=== PATIENT | female | born 1990 | race Two or more races ===

== ENCOUNTER 2017-11-02 02:08 | Emergency (ER) | payer SELFPAY ==
[~2017-11-02] VITALS: Ht 157.5 cm; Wt 65.4 kg
[2017-11-02] MEDS ORDERED: HYDROcodone/acetaminophen 10/325mg tab PO ONE ×2 (02:35→04:10)
[2017-11-02 02:54] LABS: BASOPHILS % (AUTO) 0.3 % (0-1); EOSINOPHILS # (AUTO) 0.3 X10'3 (0-0.9); EOSINOPHILS % (AUTO) 3.1 % (0-6); HEMATOCRIT 42.5 % (35.0-45.0); HEMOGLOBIN 14.5 g/dl (12.0-16.0); LYMPHOCYTES # (AUTO) 1.6 X10'3 (1.1-4.8); LYMPHOCYTES % (AUTO) 19.4 % (21-51); MEAN CORPUSCULAR HEMOGLOBIN 29.1 PG (27.0-31.0); MEAN CORPUSCULAR HGB CONC 34.1 % (33.0-36.5); MEAN CORPUSCULAR VOLUME 85.3 FL (78-98); MEAN PLATELET VOLUME 8.2 FL (7.4-10.4); MONOCYTES # (AUTO) 0.6 X10'3 (0-0.9); NEUTROPHILS # (AUTO) 5.7 X10'3 (1.8-7.7); NEUTROPHILS % (AUTO) 70.2 % (42-75); PLATELET COUNT 249 X10'3 (140-440); RED BLOOD COUNT 4.98 X10'6 (4.20-5.60); RED CELL DISTRIBUTION WIDTH 14.2 % (11.5-14.5); WHITE BLOOD COUNT 8.2 X10'3 (4.5-11.0)
[2017-11-02 03:09] LABS: ALANINE AMINOTRANSFERASE 298 U/L (12-78); ALBUMIN 3.9 G/DL (3.4-5.0); ALKALINE PHOSPHATASE 170 IU/L (46-116); ANION GAP 8 (8-16); ASPARTATE AMINO TRANSFERASE 296 U/L (10-37); BILIRUBIN,TOTAL 0.9 MG/DL (0.1-1.0); BLOOD UREA NITROGEN 15 MG/DL (7-18); BUN/CREATININE RATIO 22.4 (6.6-38.0); CHLORIDE 106 MMOL/L (99-107); CREATININE 0.67 MG/DL (0.40-0.90); GLUCOSE 127 MG/DL (70-104); LIPASE 156 U/L (73-393); SODIUM 140 MMOL/L (135-145); TOTAL CARBON DIOXIDE 26.4 MMOL/L (24-32); TOTAL PROTEIN 7.9 G/DL (6.4-8.2); eGFR > 90 ML/MIN
[2017-11-02 03:11] LABS: CLARITY,URINE CLEAR (Clear); COLOR,URINE YELLOW (Yellow); GLUCOSE, URINE NEGATIVE (Neg); KETONES,URINE NEGATIVE (Neg); LEUKOCYTE ESTERASE ,URINE TRACE (Neg); NITRITES, URINE NEGATIVE (Neg); OCCULT BLOOD,URINE NEGATIVE (Neg); PH,URINE 6.5 (4.8-8.0); PROTEIN,URINE NEGATIVE (Neg)
[2017-11-02 03:15] LABS: UA COLLECTION TYPE CLN CATCH MIDSTREAM
[2017-11-02 03:23] LABS: BACTERIA,URINE 1+ /HPF (Neg); MUCUS STRANDS NONE SEEN /LPF (Neg); RBC,URINE NONE SEEN /HPF (0-2); SQUAMOUS EPITHELIAL CELL,UR FEW /LPF (FEW)
[2017-11-02] MEDS ORDERED: HYDR-565 PO (04:09)
[2017-11-02] MEDS ORDERED: ONDA4TAB6 PO (04:09)
[2017-11-02 04:37] VITALS: BP 117/71
== END 2017-11-02 04:40 | disposition home or self-care (01) ==
LOC: ER 02:09
DX: R74.0 Nonspecific elevation of levels of transaminase and lactic acid dehydrogenase [LDH] (principal); R10.9 Unspecified abdominal pain
CPT/HCPCS: 36415; 76700; 80053; 81001; 83690; 85025; 87088; 99285

== ENCOUNTER 2020-07-25 11:50 | Emergency (ER) | payer OTHER ==
[~2020-07-25 11:50] MED LIST: ONDA4TAB6 PO
== END 2020-07-25 13:41 | disposition left against medical advice (07) ==
LOC: ER 11:51
DX: R10.84 Generalized abdominal pain (principal); Z53.21 Procedure and treatment not carried out due to patient leaving prior to being seen by health care provider

== ENCOUNTER 2020-08-03 15:23 | Emergency (ER) | payer BC, OTHER ==
[~2020-08-03] VITALS: Ht 157.5 cm; Wt 63.6 kg
[2020-08-03 15:48] VITALS: BP 103/68
[2020-08-03 16:43] LABS: BASOPHILS % (AUTO) 0.3 % (0-1); EOSINOPHILS % (AUTO) 0.5 % (0-6); HEMATOCRIT 42.6 % (35.0-45.0); HEMOGLOBIN 14.3 g/dl (12.0-16.0); LYMPHOCYTES # (AUTO) 0.5 X10'3 (1.1-4.8); LYMPHOCYTES % (AUTO) 4.7 % (21-51); MEAN CORPUSCULAR HEMOGLOBIN 29.3 PG (27.0-31.0); MEAN CORPUSCULAR HGB CONC 33.6 g/dL (33.0-36.5); MEAN CORPUSCULAR VOLUME 87.4 FL (78-98); MEAN PLATELET VOLUME 8.2 FL (7.4-10.4); MONOCYTES # (AUTO) 0.5 X10'3 (0-0.9); MONOCYTES % (AUTO) 4.6 % (2-12); NEUTROPHILS # (AUTO) 9.1 X10'3 (1.8-7.7); NEUTROPHILS % (AUTO) 89.9 % (42-75); PLATELET COUNT 292 X10'3 (140-440); RED BLOOD COUNT 4.87 X10'6 (4.20-5.60); WHITE BLOOD COUNT 10.2 X10'3 (4.5-11.0)
[2020-08-03 17:06] LABS: ALANINE AMINOTRANSFERASE 81 U/L (12-78); ALBUMIN 3.4 G/DL (3.4-5.0); ALBUMIN/GLOBULIN RATIO 0.8 (1.1-1.5); ALKALINE PHOSPHATASE 185 IU/L (46-116); ANION GAP 8 (8-16); ASPARTATE AMINO TRANSFERASE 97 U/L (10-37); BILIRUBIN,TOTAL 0.4 MG/DL (0.1-1.0); BLOOD UREA NITROGEN 15 MG/DL (7-18); BUN/CREATININE RATIO 25.9 (6.6-38.0); CHLORIDE 107 MMOL/L (99-107); CREATININE 0.58 MG/DL (0.40-0.90); GLUCOSE 114 MG/DL (70-104); LIPASE 149 U/L (73-393); POTASSIUM 3.8 MMOL/L (3.5-5.1); SODIUM 141 MMOL/L (135-145); TOTAL CARBON DIOXIDE 25.6 MMOL/L (24-32); TOTAL PROTEIN 7.5 G/DL (6.4-8.2); eGFR > 90 ML/MIN
[2020-08-03 19:19] LABS: URINE HCG NEGATIVE (NEG)
[2020-08-03 19:24] LABS: CLARITY,URINE CLEAR (Clear); COLOR,URINE YELLOW (Yellow); GLUCOSE, URINE NEGATIVE (Neg); KETONES,URINE NEGATIVE (Neg); LEUKOCYTE ESTERASE ,URINE NEGATIVE (Neg); NITRITES, URINE NEGATIVE (Neg); OCCULT BLOOD,URINE LARGE (Neg); PROTEIN,URINE NEGATIVE (Neg)
[2020-08-03 19:28] LABS: UA COLLECTION TYPE CLN CATCH MIDSTREAM
[2020-08-03 19:29] LABS: BACTERIA,URINE NONE SEEN /HPF (Neg); SQUAMOUS EPITHELIAL CELL,UR FEW /LPF (FEW); WBC,URINE NONE SEEN /HPF (0-4)
[2020-08-03] MEDS ORDERED: HYDR-3965 PO (19:47)
[2020-08-03] MEDS ORDERED: ONDA4TAB6 PO (19:47)
[2020-08-03] MEDS ORDERED: ondansetron 4mg rapidly disintigrating tab PO ONE (19:50)
== END 2020-08-03 20:30 | disposition home or self-care (01) ==
LOC: ER 15:24
DX: K82.9 Disease of gallbladder, unspecified (principal); Z88.0 Allergy status to penicillin; Z79.899 Other long term (current) drug therapy
CPT/HCPCS: 36415; 80053; 81001; 81025; 83690; 85025; 99283

== ENCOUNTER 2020-08-17 23:58 | Inpatient (IN) | payer BC, OTHER ==
[~2020-08-17] VITALS: Ht 157.5 cm; Wt 61.3 kg
[~2020-08-17 23:58] MED LIST changes: +HYDR-3965 PO
[2020-08-18] VITALS (25 sets, daily range): BP systolic 112–133; BP diastolic 75–88
[2020-08-18] MEDS ORDERED: ondansetron/PF 4mg/2ml inj IV ONE (00:10)
[2020-08-18] MEDS ORDERED: normal saline 1000ML IV soln IVB ONE (00:10)
[2020-08-18 00:28] LABS: BASOPHILS % (AUTO) 0.3 % (0-1); EOSINOPHILS # (AUTO) 0.1 X10'3 (0-0.9); EOSINOPHILS % (AUTO) 1.9 % (0-6); HEMATOCRIT 45.5 % (35.0-45.0); HEMOGLOBIN 15.2 g/dl (12.0-16.0); LYMPHOCYTES # (AUTO) 1.9 X10'3 (1.1-4.8); LYMPHOCYTES % (AUTO) 25.9 % (21-51); MEAN CORPUSCULAR HEMOGLOBIN 29.4 PG (27.0-31.0); MEAN CORPUSCULAR HGB CONC 33.5 g/dL (33.0-36.5); MEAN PLATELET VOLUME 8.5 FL (7.4-10.4); MONOCYTES # (AUTO) 0.3 X10'3 (0-0.9); MONOCYTES % (AUTO) 4.5 % (2-12); NEUTROPHILS # (AUTO) 4.9 X10'3 (1.8-7.7); NEUTROPHILS % (AUTO) 67.4 % (42-75); PLATELET COUNT 238 X10'3 (140-440); RED BLOOD COUNT 5.17 X10'6 (4.20-5.60); RED CELL DISTRIBUTION WIDTH 14.3 % (11.5-14.5); WHITE BLOOD COUNT 7.2 X10'3 (4.5-11.0)
[2020-08-18 00:31] LABS: CLARITY,URINE CLEAR (Clear); COLOR,URINE YELLOW (Yellow); GLUCOSE, URINE NEGATIVE (Neg); KETONES,URINE NEGATIVE (Neg); LEUKOCYTE ESTERASE ,URINE TRACE (Neg); NITRITES, URINE NEGATIVE (Neg); OCCULT BLOOD,URINE SMALL (Neg); PH,URINE 7.5 (4.8-8.0); PROTEIN,URINE NEGATIVE (Neg)
[2020-08-18] MEDS: morphine 4 MG/ML inj SYRINge IV PRN ×2 (00:31→03:37)
[2020-08-18 00:35] LABS: URINE HCG NEGATIVE (NEG)
[2020-08-18 00:41] LABS: UA COLLECTION TYPE CLN CATCH MIDSTREAM
[2020-08-18 00:42] LABS: BACTERIA,URINE 1+ /HPF (Neg); RBC,URINE 0-2 /HPF (0-2); SQUAMOUS EPITHELIAL CELL,UR FEW /LPF (FEW); WBC,URINE 0-4 /HPF (0-4)
[2020-08-18 00:44] LABS: ALANINE AMINOTRANSFERASE 55 U/L (12-78); ALBUMIN 3.8 G/DL (3.4-5.0); ALBUMIN/GLOBULIN RATIO 0.9 (1.1-1.5); ALKALINE PHOSPHATASE 121 IU/L (46-116); ANION GAP 5 (8-16); ASPARTATE AMINO TRANSFERASE 69 U/L (10-37); BILIRUBIN,TOTAL 0.3 MG/DL (0.1-1.0); BLOOD UREA NITROGEN 18 MG/DL (7-18); BUN/CREATININE RATIO 27.3 (6.6-38.0); CALCIUM 8.6 MG/DL (8.5-10.1); CHLORIDE 105 MMOL/L (99-107); CREATININE 0.66 MG/DL (0.40-0.90); GLUCOSE 107 MG/DL (70-104); LIPASE 165 U/L (73-393); POTASSIUM 3.8 MMOL/L (3.5-5.1); SODIUM 142 MMOL/L (135-145); TOTAL CARBON DIOXIDE 32.2 MMOL/L (24-32); TOTAL PROTEIN 7.9 G/DL (6.4-8.2); eGFR > 90 ML/MIN
--- NOTE | 2020-08-18 00:45 | NUR ---
pt to ct via wheel chair
--- NOTE | 2020-08-18 01:10 | NUR ---
DR SYKES AT BEDSIDE
[2020-08-18] MEDS ORDERED: NO HOME MEDS (02:05)
[2020-08-18] MEDS ORDERED: acetaminophen 325mg tablet PO PRN (03:15)
[2020-08-18] MEDS ORDERED: ondansetron/PF 4mg/2ml inj IV PRN ×2 (03:15→11:35)
[2020-08-18] MEDS ORDERED: mag hydrox/Alum hydrox/simeth 30ml oral suspension PO PRN (03:15)
[2020-08-18] MEDS ORDERED: magnesium hydroxide 30ml (MOM) UD suspension PO PRN (03:15)
[2020-08-18] MEDS: normal saline 1000ml 1,000 ML IV SCH ×3 (04:09→23:04)
--- NOTE | 2020-08-18 06:26 | NUR ---
ULTRASOUND AT BEDSIDE
--- NOTE | 2020-08-18 08:41 | NUR ---
PT AMBULATED TO BATHROOM WITH MIN ASSIST AND PLACED INTO GOWN. NO DISTRESS NOTED.
[2020-08-18] MEDS ORDERED: BUPIVAcaine/PF 2.5 mg/ml (0.25%) 30ml vial ONE (10:48)
[2020-08-18] MEDS: morphine 2 MG/ML inj. syringe IV PRN ×4 (11:02→23:04)
[2020-08-18] MEDS ORDERED: famotidine/PF 10 mg/ml inj IV ONE (11:20)
[2020-08-18] MEDS ORDERED: fentaNYL/PF 50MCG/1 ML 2ML syringe ONE ×2 (11:23→12:15)
[2020-08-18] MEDS ORDERED: midazolam 2 mg/2 ml injection ONE (11:24)
[2020-08-18] MEDS ORDERED: rocuronium 10mg/ml inj IV ONE (11:25)
[2020-08-18] MEDS ORDERED: propofol inj 20 ML IV ONE (11:25)
[2020-08-18] MEDS ORDERED: LIDOcaine 2% (20mg/ml) 5ml vial ONE (11:25)
[2020-08-18] MEDS ORDERED: proCHLORperazine 10 MG/2 ml inj IV PRN (11:35)
[2020-08-18] MEDS ORDERED: morphine 2 MG/ML inj. syringe IV PRN (11:35)
[2020-08-18] MEDS ORDERED: meperidine/PF 25mg/ml syringe IV PRN ×3 (11:35)
[2020-08-18] MEDS ORDERED: ringers solution, lacted 1,000 ML IV SCH (11:35)
[2020-08-18] MEDS ORDERED: morphine 4 MG/ML inj SYRINge IV PRN (11:35)
[2020-08-18] MEDS ORDERED: sevoflurane 250ml liquid IH ONE (11:45)
[2020-08-18] MEDS ORDERED: clindamycin phosphate 150mg/ml inj. ONE (12:11)
[2020-08-18] MEDS ORDERED: bacitracin 15gm ointment TP ONE (12:44)
--- NOTE | 2020-08-18 12:55 | NUR ---
ADMITTED TO PACU FROM OR ACCOMPANIED BY ANESTHESIA. INTIAL PHYSICAL ASSESSMENT DONE AND RECORDED. REPORT RECEIVED FROM ANESTHESIA.
[2020-08-18] MEDS ORDERED: neostigmine methylsulfate 1 MG/ML 10ml vial ONE (13:08)
[2020-08-18] MEDS ORDERED: ondansetron/PF 4mg/2ml inj ONE (13:08)
[2020-08-18] MEDS ORDERED: glycopyrrolate 0.2mg/ml inj ONE (13:08)
[2020-08-18] MEDS ORDERED: dexamethasone sod phosphate 4mg/ml inj. ONE (13:08)
--- NOTE | 2020-08-18 13:46 | NUR ---
REPORT TO Veronica CUBA RN
--- NOTE | 2020-08-18 15:09 | NUR ---
received report from recovery
--- NOTE | 2020-08-18 15:30 | NUR ---
PACU DISCHARGE CRITERIA MET, REPORT GIVEN TO FLOOR. DENIES PAIN OR DISCOMFORT, TRANSFERRED TO ROOM IN STABLE GOOD CONDITION. COVID PRECAUTIONS FOLLOWED
--- NOTE | 2020-08-18 18:27 | NUR ---
GAVE REPORT TO November,
[2020-08-19 02:00] VITALS: BP 107/57
[2020-08-19] MEDS: morphine 2 MG/ML inj. syringe IV PRN ×4 (03:22→21:12)
[2020-08-19 06:00] VITALS: BP 100/61
--- NOTE | 2020-08-19 06:34 | NUR ---
Patient in room [facility]TH[facility] 4016. I have received report from EMILY HILTON and had the opportunity to ask questions and assume patient care.
[2020-08-19 08:31] LABS: BASOPHILS % (AUTO) 0.3 % (0-1); EOSINOPHILS % (AUTO) 0.5 % (0-6); HEMATOCRIT 40.8 % (35.0-45.0); HEMOGLOBIN 13.6 g/dl (12.0-16.0); LYMPHOCYTES # (AUTO) 1.1 X10'3 (1.1-4.8); LYMPHOCYTES % (AUTO) 14.8 % (21-51); MEAN CORPUSCULAR HEMOGLOBIN 29.5 PG (27.0-31.0); MEAN CORPUSCULAR HGB CONC 33.3 g/dL (33.0-36.5); MEAN CORPUSCULAR VOLUME 88.5 FL (78-98); MEAN PLATELET VOLUME 9.1 FL (7.4-10.4); MONOCYTES # (AUTO) 0.3 X10'3 (0-0.9); MONOCYTES % (AUTO) 4.3 % (2-12); NEUTROPHILS # (AUTO) 6.2 X10'3 (1.8-7.7); NEUTROPHILS % (AUTO) 80.1 % (42-75); PLATELET COUNT 234 X10'3 (140-440); RED BLOOD COUNT 4.61 X10'6 (4.20-5.60); RED CELL DISTRIBUTION WIDTH 14.2 % (11.5-14.5); WHITE BLOOD COUNT 7.7 X10'3 (4.5-11.0)
[2020-08-19 08:51] LABS: ALANINE AMINOTRANSFERASE 95 U/L (12-78); ALBUMIN/GLOBULIN RATIO 0.9 (1.1-1.5); ALKALINE PHOSPHATASE 109 IU/L (46-116); ANION GAP 10 (8-16); ASPARTATE AMINO TRANSFERASE 37 U/L (10-37); BILIRUBIN,TOTAL 0.6 MG/DL (0.1-1.0); BLOOD UREA NITROGEN 9 MG/DL (7-18); BUN/CREATININE RATIO 16.4 (6.6-38.0); CALCIUM 8.5 MG/DL (8.5-10.1); CHLORIDE 107 MMOL/L (99-107); CREATININE 0.55 MG/DL (0.40-0.90); GLUCOSE 92 MG/DL (70-104); POTASSIUM 3.6 MMOL/L (3.5-5.1); SODIUM 142 MMOL/L (135-145); TOTAL CARBON DIOXIDE 24.7 MMOL/L (24-32); TOTAL PROTEIN 6.4 G/DL (6.4-8.2); eGFR > 90 ML/MIN
[2020-08-19] MEDS: normal saline 1000ml 1,000 ML IV SCH ×2 (09:15→19:15)
[2020-08-19 10:00] VITALS: BP 112/70
[2020-08-19] MEDS ORDERED: pneumococcal 23-VAL P-sac vacc 25 mcg/0.5ml vial IMVAC ONE (10:00)
--- NOTE | 2020-08-19 11:23 | NUR ---
Page Sent PAGER ID: [phone] MESSAGE: JONO 0590-RE: GUME VARELA [phone]...CAN I GET A DIET ORDER FOR PT, POST OP BALDO PACHECO 08/18
[2020-08-19] MEDS ORDERED: HYDR-3965 PO (12:12)
--- NOTE | 2020-08-19 16:48 | NUR ---
Page Sent PAGER ID: [phone] MESSAGE: JONO [id number]-RE: GUME VARELA [id number]...PT NOT READY TO GO HOME, WANTS TO STAY 1 MORE NIGHT
[2020-08-19 18:00] VITALS: BP 118/72
--- NOTE | 2020-08-19 21:24 | NUR ---
Problems reprioritized. Patient report given, questions answered & plan of care reviewed with EMILY ROY.
[2020-08-19 22:00] VITALS: BP 114/75
[2020-08-20 02:00] VITALS: BP 107/67
[2020-08-20 06:00] VITALS: BP 114/66
[2020-08-20] MEDS: morphine 2 MG/ML inj. syringe IV PRN (07:44)
[2020-08-20] MEDS: normal saline 1000ml 1,000 ML IV SCH (07:46)
[2020-08-20 08:19] LABS: BASOPHILS % (AUTO) 0.2 % (0-1); EOSINOPHILS # (AUTO) 0.1 X10'3 (0-0.9); EOSINOPHILS % (AUTO) 1.1 % (0-6); HEMATOCRIT 41.6 % (35.0-45.0); HEMOGLOBIN 13.8 g/dl (12.0-16.0); LYMPHOCYTES # (AUTO) 1.8 X10'3 (1.1-4.8); MEAN CORPUSCULAR HEMOGLOBIN 29.3 PG (27.0-31.0); MEAN CORPUSCULAR HGB CONC 33.1 g/dL (33.0-36.5); MEAN CORPUSCULAR VOLUME 88.7 FL (78-98); MEAN PLATELET VOLUME 8.9 FL (7.4-10.4); MONOCYTES # (AUTO) 0.5 X10'3 (0-0.9); MONOCYTES % (AUTO) 6.4 % (2-12); NEUTROPHILS # (AUTO) 4.8 X10'3 (1.8-7.7); NEUTROPHILS % (AUTO) 67.3 % (42-75); PLATELET COUNT 221 X10'3 (140-440); RED BLOOD COUNT 4.69 X10'6 (4.20-5.60); RED CELL DISTRIBUTION WIDTH 14.4 % (11.5-14.5); WHITE BLOOD COUNT 7.2 X10'3 (4.5-11.0)
[2020-08-20 08:44] LABS: ALANINE AMINOTRANSFERASE 76 U/L (12-78); ALBUMIN 3.3 G/DL (3.4-5.0); ALBUMIN/GLOBULIN RATIO 0.9 (1.1-1.5); ALKALINE PHOSPHATASE 101 IU/L (46-116); ANION GAP 10 (8-16); ASPARTATE AMINO TRANSFERASE 23 U/L (10-37); BILIRUBIN,TOTAL 0.4 MG/DL (0.1-1.0); BLOOD UREA NITROGEN 9 MG/DL (7-18); BUN/CREATININE RATIO 14.1 (6.6-38.0); CALCIUM 8.4 MG/DL (8.5-10.1); CHLORIDE 106 MMOL/L (99-107); CREATININE 0.64 MG/DL (0.40-0.90); GLUCOSE 86 MG/DL (70-104); POTASSIUM 3.6 MMOL/L (3.5-5.1); SODIUM 144 MMOL/L (135-145); TOTAL CARBON DIOXIDE 27.6 MMOL/L (24-32); eGFR > 90 ML/MIN
[2020-08-20 10:00] VITALS: BP 102/71
== END 2020-08-20 13:15 | disposition home or self-care (01) | DRG 419 ==
LOC: ER 23:59 → ED HOLD 08-18 03:13 → ORTHO 4S 08-18 15:45
PROVIDERS: ADMIT Internal Medicine; ATTEND Internal Medicine
PROC: 0FT44ZZ Resection of Gallbladder, Percutaneous Endoscopic Approach (ICD-10-PCS; principal; 2020-08-18 11:45)
DX: K80.00 Calculus of gallbladder with acute cholecystitis without obstruction (principal); K59.00 Constipation, unspecified; Z88.0 Allergy status to penicillin
CPT/HCPCS: 99285; Z7506; Z7508; 36415; 74176; 76700; 80053; 81001; 81025; 83690; 85025; 87081; 87088; 87635; 93005; A4215; A4618; A7000; G0378; J1100; J2001; J2175; J2250; J2270; J2405; J2704; J2710; J3010; J3490; J7030; J7120

== ENCOUNTER 2022-03-08 12:47 | Emergency (ER) | payer SELFPAY ==
[~2022-03-08] VITALS: Ht 157.5 cm; Wt 67.3 kg
[2022-03-08 13:08] VITALS: BP 133/93
[2022-03-08 14:36] LABS: BASOPHILS % (AUTO) 0.4 % (0-1); EOSINOPHILS # (AUTO) 0.1 X10'3 (0-0.9); EOSINOPHILS % (AUTO) 1.7 % (0-6); HEMATOCRIT 45.5 % (35.0-45.0); HEMOGLOBIN 15.1 g/dl (12.0-16.0); LYMPHOCYTES # (AUTO) 1.5 X10'3 (1.1-4.8); LYMPHOCYTES % (AUTO) 18.4 % (21-51); MEAN CORPUSCULAR HEMOGLOBIN 28.6 PG (27.0-31.0); MEAN CORPUSCULAR HGB CONC 33.3 g/dL (33.0-36.5); MEAN CORPUSCULAR VOLUME 85.8 FL (78-98); MEAN PLATELET VOLUME 8.3 FL (7.4-10.4); MONOCYTES # (AUTO) 0.4 X10'3 (0-0.9); NEUTROPHILS # (AUTO) 6.3 X10'3 (1.8-7.7); NEUTROPHILS % (AUTO) 74.5 % (42-75); PLATELET COUNT 216 X10'3 (140-440); RED CELL DISTRIBUTION WIDTH 14.3 % (11.5-14.5); WHITE BLOOD COUNT 8.4 X10'3 (4.5-11.0)
[2022-03-08 14:52] LABS: ALANINE AMINOTRANSFERASE 20 U/L (12-78); ALBUMIN 3.8 G/DL (3.4-5.0); ALKALINE PHOSPHATASE 83 IU/L (46-116); ANION GAP 8 (8-16); ASPARTATE AMINO TRANSFERASE 9 U/L (10-37); BILIRUBIN,TOTAL 0.4 MG/DL (0.1-1.0); BLOOD UREA NITROGEN 12 MG/DL (7-18); BUN/CREATININE RATIO 23.1 (6.6-38.0); CALCIUM 8.2 MG/DL (8.5-10.1); CHLORIDE 106 MMOL/L (99-107); CREATININE 0.52 MG/DL (0.40-0.90); GLUCOSE 89 MG/DL (70-104); LIPASE 111 U/L (73-393); SODIUM 141 MMOL/L (135-145); TOTAL CARBON DIOXIDE 26.7 MMOL/L (24-32); TOTAL PROTEIN 7.7 G/DL (6.4-8.2); eGFR > 90 ML/MIN
[2022-03-08 14:54] LABS: CLARITY,URINE CLEAR (Clear); COLOR,URINE YELLOW (Yellow); GLUCOSE, URINE NEGATIVE (Neg); KETONES,URINE NEGATIVE (Neg); LEUKOCYTE ESTERASE ,URINE NEGATIVE (Neg); NITRITES, URINE NEGATIVE (Neg); OCCULT BLOOD,URINE TRACE-INTACT (Neg); PROTEIN,URINE NEGATIVE (Neg); UROBILINOGEN,URINE 0.2 E.U/dL (0.2-1.0)
[2022-03-08 14:55] LABS: UA COLLECTION TYPE CLN CATCH MIDSTREAM
[2022-03-08] MEDS ORDERED: sucralfate 1 gm tablet PO ONE (15:00)
[2022-03-08] MEDS ORDERED: LIDOcaine Viscous 15ml cup MM ONE (15:00)
[2022-03-08] MEDS ORDERED: mag hydrox/Alum hydrox/simeth 30ml oral suspension PO ONE (15:00)
[2022-03-08 15:11] LABS: BACTERIA,URINE NONE SEEN /HPF (Neg); MUCUS STRANDS NONE SEEN /LPF (Neg); RBC,URINE NONE SEEN /HPF (0-2); SQUAMOUS EPITHELIAL CELL,UR FEW /LPF (FEW); WBC,URINE 0-4 /HPF (0-4)
== END 2022-03-08 15:38 | disposition home or self-care (01) ==
LOC: ER 12:47
DX: K29.00 Acute gastritis without bleeding (principal); Z88.0 Allergy status to penicillin; Z79.899 Other long term (current) drug therapy
CPT/HCPCS: 36415; 76700; 80053; 81001; 83690; 85025; 99284